=== PATIENT | female | born 1930 | race Native Hawaiian/Other Pacific Islander ===

== ENCOUNTER 2018-06-26 11:09 | Inpatient (IN) | payer OTHER ==
[~2018-06-26] VITALS: Ht 149.9 cm; Wt 62.7 kg
[~2018-06-26 11:09] MED LIST: BP; CHOLESTEROL; SITA25 PO
[2018-06-26] MEDS ORDERED: SODIUM CHLORIDE 0.9% 1,000 ML IV ONE (12:45)
[2018-06-26 14:33] LABS: BASOPHILS % (AUTO) 0.7 % (0.0-2.0); EOSINOPHILS % (AUTO) 4.5 % (1.0-6.0); HEMATOCRIT 28.7 % (36-46); HEMOGLOBIN 9.8 g/dL (12.0-16.0); LYMPHOCYTES # (AUTO) 1.2 K/uL (1.0-4.8); LYMPHOCYTES % (AUTO) 14.4 % (22.0-44.0); MEAN CORPUSCULAR HEMOGLOBIN 26.8 pg (26.0-34.0); MEAN CORPUSCULAR VOLUME 79 fL (80-100); MONOCYTES # (AUTO) 0.5 K/uL (0.1-1.0); MONOCYTES % (AUTO) 6.7 % (2.0-9.0); NEUTROPHILS # (AUTO) 5.9 K/uL (1.8-7.7); NEUTROPHILS % (AUTO) 73.7 % (40.0-70.0); PLATELET COUNT (AUTO) 375 K/uL (150-450); RED BLOOD CELL COUNT(AUTO) 3.64 MIL/uL (4.00-5.20); RED CELL DISTRIBUTION WIDTH 14.1 % (11.5-14.5)
[2018-06-26] MEDS ORDERED: ONDANSETRON HCL 4 MG/2 ML VIAL IVP PRN ×2 (14:45→15:45)
[2018-06-26] MEDS ORDERED: 0.9% SODIUM CHLORIDE 10 ML SYRINGE IVP PRN (14:45)
[2018-06-26] MEDS ORDERED: ACETAMINOPHEN 325 MG TABLET PO PRN ×2 (14:45→15:45)
[2018-06-26 15:17] LABS: ALBUMIN 2.9 g/dL (3.4-5.0); BILIRUBIN,TOTAL 0.2 mg/dL (0.1-1.0); CALCIUM, TOTAL 9.3 mg/dL (8.8-10.5); CREATININE 5.74 mg/dL (0.60-1.30); POTASSIUM 4.5 mmol/L (3.5-5.1); TOTAL PROTEIN, SERUM 7.2 g/dL (6.4-8.2)
[2018-06-26] MEDS ORDERED: HYDROCODONE/ACETAMINOPHEN 5-325 MG TABLET PO PRN (15:45)
[2018-06-26] MEDS ORDERED: MAGNESIUM HYDROXIDE SUSPENSION 30 ML UDCUP PO PRN (15:45)
[2018-06-26] MEDS ORDERED: ZOLPIDEM TARTRATE 5 MG TABLET PO PRN (15:45)
[2018-06-26] MEDS ORDERED: BISACODYL 10 MG RECTAL RECTAL SUPPOSITORY PR PRN (15:45)
[2018-06-26] MEDS ORDERED: DEXTROSE 50%-WATER 25 GM/50 ML SYRINGE IVP PRN (15:45)
[2018-06-26] MEDS ORDERED: MORPHINE SULFATE 2 MG/ML SYRINGE IVP PRN (15:45)
[2018-06-26 16:56] VITALS: BP 129/57
[2018-06-26] MEDS: HEPARIN SODIUM,PORCINE 5,000 UNITS/ML VIAL SQ SCH ×2 (17:43→23:14)
[2018-06-26] MEDS: INSULIN LISPRO 100 UNITS/ML SQ PRN ×2 (17:46→21:33)
[2018-06-26 19:41] VITALS: BP 111/51
[2018-06-26] MEDS: SODIUM CHLORIDE 0.9% 1,000 ML IV SCH (20:24)
[2018-06-26] MEDS: DOCUSATE SODIUM 100 MG CAPSULE PO SCH (20:24)
[2018-06-26 21:08] LABS: GLUCOMETER DEV NAME(LOC) 5S.2; GLUCOSE,POINT OF CARE 192 MG/DL (70-110)
[2018-06-26 23:22] LABS: GLUCOMETER DEV NAME(LOC) 5S.2; GLUCOSE,POINT OF CARE 234 MG/DL (70-110)
[2018-06-26 23:30] VITALS: BP 96/47
[2018-06-26 23:47] LABS: APPEARANCE,URINE CLOUDY (CLEAR); BILIRUBIN,URINE NEGATIVE (NEGATIVE); CREATININE,URINE RANDOM 22.7 mg/dL (30.0-125.0); GLUCOSE, URINE (UA) NEGATIVE (NEGATIVE); KETONES,URINE NEGATIVE (NEGATIVE); LEUKOCYTE ESTERASE ,URINE LARGE (NEGATIVE); NITRATE,URINE NEGATIVE (NEGATIVE); OCCULT BLOOD,URINE MODERATE (NEGATIVE); PH,URINE 5.5 (5.0-8.0); PROTEIN,URINE TRACE (NEGATIVE); UROBILINOGEN,URINE 0.2 mg/dL (<=1.0)
[2018-06-27 00:09] LABS: BACTERIA,URINE Many /HPF (None Seen); WBC,URINE 51-100 /HPF (0-5)
[2018-06-27 00:10] LABS: SQUAMOUS EPITHELIAL CELL,UR Few /LPF (None Seen)
[2018-06-27 04:25] VITALS: BP 118/52
[2018-06-27] MEDS: INSULIN LISPRO 100 UNITS/ML SQ PRN ×4 (05:54→20:58)
[2018-06-27 05:56] LABS: GLUCOMETER DEV NAME(LOC) 5S.2; GLUCOSE,POINT OF CARE 159 MG/DL (70-110)
[2018-06-27 06:31] LABS: BASOPHILS % (AUTO) 1.2 % (0.0-2.0); EOSINOPHILS % (AUTO) 7.2 % (1.0-6.0); HEMATOCRIT 26.1 % (36-46); HEMOGLOBIN 8.8 g/dL (12.0-16.0); LYMPHOCYTES % (AUTO) 17.1 % (22.0-44.0); MEAN CORPUSCULAR HEMOGLOBIN 26.6 pg (26.0-34.0); MEAN CORPUSCULAR HGB CONC 33.9 G/dL (31.0-37.0); MEAN CORPUSCULAR VOLUME 79 fL (80-100); MONOCYTES # (AUTO) 0.4 K/uL (0.1-1.0); MONOCYTES % (AUTO) 7.2 % (2.0-9.0); NEUTROPHILS # (AUTO) 4.1 K/uL (1.8-7.7); NEUTROPHILS % (AUTO) 67.3 % (40.0-70.0); PLATELET COUNT (AUTO) 356 K/uL (150-450); RED BLOOD CELL COUNT(AUTO) 3.32 MIL/uL (4.00-5.20); RED CELL DISTRIBUTION WIDTH 14.6 % (11.5-14.5)
[2018-06-27] MEDS: SODIUM CHLORIDE 0.9% 1,000 ML IV SCH ×2 (06:52→21:10)
[2018-06-27 07:03] LABS: ALBUMIN 2.4 g/dL (3.4-5.0); BILIRUBIN,TOTAL 0.2 mg/dL (0.1-1.0); CALCIUM, TOTAL 8.7 mg/dL (8.8-10.5); CREATININE 4.99 mg/dL (0.60-1.30); MAGNESIUM 1.5 mg/dL (1.80-2.40); PHOSPHORUS 4.1 mg/dL (2.5-4.9); POTASSIUM 4.1 mmol/L (3.5-5.1); TOTAL PROTEIN, SERUM 6.3 g/dL (6.4-8.2)
[2018-06-27 07:06] LABS: HEMOGLOBIN A1C 10.5 % (4.5-6.2)
[2018-06-27 07:16] LABS: % IRON SATURATION 26.1 % (22-44)
[2018-06-27 08:13] VITALS: BP 135/53
[2018-06-27] MEDS: PANTOPRAZOLE SODIUM 40 MG DR TABLET PO SCH (08:55)
[2018-06-27] MEDS: HEPARIN SODIUM,PORCINE 5,000 UNITS/ML VIAL SQ SCH ×2 (08:56→17:24)
[2018-06-27] MEDS: DOCUSATE SODIUM 100 MG CAPSULE PO SCH ×2 (08:56→20:26)
[2018-06-27] MEDS: CefTRIAXone 1 GM/DEXTROSE 50 ML IV SCH (09:27)
[2018-06-27] MEDS ORDERED: MAGNESIUM SULFATE 1 GM in DEXTROSE 5%-WATER 50 ML IV ONE (10:30)
[2018-06-27 11:06] VITALS: BP 133/59
[2018-06-27 14:19] LABS: GLUCOMETER DEV NAME(LOC) 5S.1; GLUCOSE,POINT OF CARE 249 MG/DL (70-110)
[2018-06-27 15:25] VITALS: BP 121/46
[2018-06-27 20:24] VITALS: BP 119/51
[2018-06-27 20:29] LABS: GLUCOMETER DEV NAME(LOC) 5S.1; GLUCOSE,POINT OF CARE 216 MG/DL (70-110)
[2018-06-27 21:34] LABS: GLUCOMETER DEV NAME(LOC) 5S.2; GLUCOSE,POINT OF CARE 167 MG/DL (70-110)
[2018-06-27 23:50] VITALS: BP 140/60
[2018-06-28] MEDS: HEPARIN SODIUM,PORCINE 5,000 UNITS/ML VIAL SQ SCH ×4 (00:02→23:54)
[2018-06-28 03:52] VITALS: BP 134/55
[2018-06-28 05:44] LABS: BASOPHILS % (AUTO) 1.3 % (0.0-2.0); HEMATOCRIT 25.4 % (36-46); HEMOGLOBIN 8.8 g/dL (12.0-16.0); LYMPHOCYTES # (AUTO) 1.3 K/uL (1.0-4.8); LYMPHOCYTES % (AUTO) 18.5 % (22.0-44.0); MEAN CORPUSCULAR HEMOGLOBIN 27.2 pg (26.0-34.0); MEAN CORPUSCULAR HGB CONC 34.7 G/dL (31.0-37.0); MEAN CORPUSCULAR VOLUME 79 fL (80-100); MONOCYTES # (AUTO) 0.6 K/uL (0.1-1.0); MONOCYTES % (AUTO) 8.6 % (2.0-9.0); NEUTROPHILS # (AUTO) 4.5 K/uL (1.8-7.7); NEUTROPHILS % (AUTO) 64.6 % (40.0-70.0); PLATELET COUNT (AUTO) 372 K/uL (150-450); RED BLOOD CELL COUNT(AUTO) 3.23 MIL/uL (4.00-5.20); RED CELL DISTRIBUTION WIDTH 14.7 % (11.5-14.5)
[2018-06-28 05:59] LABS: ALBUMIN 2.3 g/dL (3.4-5.0); BILIRUBIN,TOTAL 0.2 mg/dL (0.1-1.0); CALCIUM, TOTAL 8.8 mg/dL (8.8-10.5); CREATININE 4.42 mg/dL (0.60-1.30); MAGNESIUM 1.6 mg/dL (1.80-2.40); PHOSPHORUS 4.3 mg/dL (2.5-4.9); POTASSIUM 4.2 mmol/L (3.5-5.1); TOTAL PROTEIN, SERUM 6.2 g/dL (6.4-8.2)
[2018-06-28] MEDS: SODIUM CHLORIDE 0.9% 1,000 ML IV SCH ×2 (06:54→16:15)
[2018-06-28 07:28] VITALS: BP 139/58
[2018-06-28 07:59] LABS: GLUCOMETER DEV NAME(LOC) 5S.1; GLUCOSE,POINT OF CARE 134 MG/DL (70-110)
[2018-06-28] MEDS ORDERED: MAGNESIUM SULFATE 1 GM in DEXTROSE 5%-WATER 50 ML IV ONE (08:00)
[2018-06-28] MEDS: PANTOPRAZOLE SODIUM 40 MG DR TABLET PO SCH (08:36)
[2018-06-28] MEDS: EPOETIN ALFA 10,000 UNITS/ML VIAL SQ SCH (08:37)
[2018-06-28] MEDS: DOCUSATE SODIUM 100 MG CAPSULE PO SCH ×2 (08:37→20:37)
[2018-06-28] MEDS: CefTRIAXone 1 GM/DEXTROSE 50 ML IV SCH (10:32)
[2018-06-28 11:26] VITALS: BP 137/57
[2018-06-28] MEDS: INSULIN LISPRO 100 UNITS/ML SQ PRN ×2 (11:48→17:57)
[2018-06-28 16:02] VITALS: BP 143/68
[2018-06-28 16:39] LABS: GLUCOMETER DEV NAME(LOC) 5S.1; GLUCOSE,POINT OF CARE 238 MG/DL (70-110)
[2018-06-28 20:18] VITALS: BP 145/62
[2018-06-28 20:18] LABS: GLUCOMETER DEV NAME(LOC) 5S.2; GLUCOSE,POINT OF CARE 167 MG/DL (70-110)
[2018-06-28] MEDS: INSULIN GLARGINE,HUM.REC.ANLOG 100 UNITS/ML SQ SCH (20:38)
[2018-06-29] VITALS (8 sets, daily range): BP systolic 145–173; BP diastolic 55–79
[2018-06-29 02:09] LABS: GLUCOMETER DEV NAME(LOC) 5S.2; GLUCOSE,POINT OF CARE 224 MG/DL (70-110)
[2018-06-29] MEDS: SODIUM CHLORIDE 0.9% 1,000 ML IV SCH ×2 (03:26→12:42)
[2018-06-29 06:05] LABS: BASOPHILS % (AUTO) 1.9 % (0.0-2.0); EOSINOPHILS % (AUTO) 8.3 % (1.0-6.0); HEMATOCRIT 27.7 % (36-46); HEMOGLOBIN 9.6 g/dL (12.0-16.0); LYMPHOCYTES # (AUTO) 1.3 K/uL (1.0-4.8); LYMPHOCYTES % (AUTO) 17.7 % (22.0-44.0); MEAN CORPUSCULAR HEMOGLOBIN 27.4 pg (26.0-34.0); MEAN CORPUSCULAR HGB CONC 34.7 G/dL (31.0-37.0); MEAN CORPUSCULAR VOLUME 79 fL (80-100); MONOCYTES # (AUTO) 0.5 K/uL (0.1-1.0); MONOCYTES % (AUTO) 7.5 % (2.0-9.0); NEUTROPHILS # (AUTO) 4.6 K/uL (1.8-7.7); NEUTROPHILS % (AUTO) 64.6 % (40.0-70.0); PLATELET COUNT (AUTO) 399 K/uL (150-450); RED CELL DISTRIBUTION WIDTH 14.7 % (11.5-14.5)
[2018-06-29 06:23] LABS: ALBUMIN 2.5 g/dL (3.4-5.0); BILIRUBIN,TOTAL 0.2 mg/dL (0.1-1.0); CALCIUM, TOTAL 9.2 mg/dL (8.8-10.5); CREATININE 3.58 mg/dL (0.60-1.30); MAGNESIUM 1.6 mg/dL (1.80-2.40); PHOSPHORUS 3.3 mg/dL (2.5-4.9); POTASSIUM 3.9 mmol/L (3.5-5.1); TOTAL PROTEIN, SERUM 6.8 g/dL (6.4-8.2)
[2018-06-29 06:35] LABS: GLUCOMETER DEV NAME(LOC) 5S.1; GLUCOSE,POINT OF CARE 182 MG/DL (70-110)
[2018-06-29] MEDS: HEPARIN SODIUM,PORCINE 5,000 UNITS/ML VIAL SQ SCH ×2 (08:00→15:00)
[2018-06-29] MEDS: DOCUSATE SODIUM 100 MG CAPSULE PO SCH ×2 (08:02→19:58)
[2018-06-29] MEDS ORDERED: CefTRIAXone SODIUM 1 GM/VIAL ONE (09:31)
[2018-06-29] MEDS ORDERED: SODIUM CHLORIDE 0.9% 100 ML ONE (09:32)
[2018-06-29] MEDS ORDERED: MEPERIDINE-PF 25 MG/ML VIAL IVP PRN (09:45)
[2018-06-29] MEDS ORDERED: FentaNYL CITRATE-PF 100 MCG/2 ML VIAL IVP PRN (09:45)
[2018-06-29] MEDS ORDERED: HYDROmorphone 2 MG/ML SYRINGE IVP PRN (09:45)
[2018-06-29] MEDS ORDERED: IOHEXOL 240 MG/ML 20 ML VIAL ONE (10:32)
[2018-06-29] MEDS: CefTRIAXone 1 GM/DEXTROSE 50 ML IV SCH (11:02)
[2018-06-29] MEDS: PANTOPRAZOLE SODIUM 40 MG DR TABLET PO SCH (11:02)
[2018-06-29] MEDS: INSULIN LISPRO 100 UNITS/ML SQ PRN ×3 (12:03→20:45)
[2018-06-29 12:44] LABS: GLUCOMETER DEV NAME(LOC) 5S.2; GLUCOSE,POINT OF CARE 172 MG/DL (70-110)
[2018-06-29] MEDS: CARVEDILOL 6.25 MG TABLET PO SCH ×2 (14:26→20:45)
[2018-06-29] MEDS ORDERED: ASPI-1182 PO (15:28)
[2018-06-29] MEDS ORDERED: FEBU40T PO (15:28)
[2018-06-29] MEDS ORDERED: FERR-89 PO (15:28)
[2018-06-29] MEDS ORDERED: PANT40TA25 PO (15:28)
[2018-06-29] MEDS ORDERED: CILO100T PO (15:28)
[2018-06-29] MEDS ORDERED: PYRI50 PO (15:28)
[2018-06-29] MEDS ORDERED: THIA100T67 PO (15:28)
[2018-06-29] MEDS ORDERED: AMLO2.5T4 PO (15:28)
[2018-06-29] MEDS ORDERED: FOLI1 PO (15:28)
[2018-06-29] MEDS ORDERED: CARV12 PO (15:28)
[2018-06-29] MEDS ORDERED: ROSU20 PO (15:28)
[2018-06-29] MEDS ORDERED: LOSA50TA64 PO (15:28)
[2018-06-29] MEDS ORDERED: DOCU250C91 PO (15:28)
[2018-06-29 18:04] LABS: GLUCOMETER DEV NAME(LOC) 5S.1; GLUCOSE,POINT OF CARE 112 MG/DL (70-110)
[2018-06-29] MEDS: OXYGEN THERAPY IH SCH (20:00)
[2018-06-29] MEDS: INSULIN GLARGINE,HUM.REC.ANLOG 100 UNITS/ML SQ SCH (20:47)
[2018-06-30] MEDS: SODIUM CHLORIDE 0.9% 1,000 ML IV SCH ×3 (00:09→17:44)
[2018-06-30 01:08] LABS: GLUCOMETER DEV NAME(LOC) 5S.1; GLUCOSE,POINT OF CARE 178 MG/DL (70-110)
[2018-06-30 04:31] VITALS: BP 176/82
[2018-06-30] MEDS ORDERED: SUCCINYLCHOLINE CHLORIDE 20 MG/ML 10 ML VIAL IVP ONE (06:03)
[2018-06-30] MEDS ORDERED: FentaNYL CITRATE-PF 100 MCG/2 ML VIAL IVP ONE (06:03)
[2018-06-30] MEDS ORDERED: PROPOFOL 1% 20 ML VIAL IVP ONE (06:03)
[2018-06-30] MEDS ORDERED: 0.9% SODIUM CHLORIDE 10 ML VIAL IVP ONE (06:03)
[2018-06-30] MEDS ORDERED: LIDOCAINE/PF 2% 5 ML VIAL IM ONE (06:03)
[2018-06-30] MEDS ORDERED: ONDANSETRON HCL 4 MG/2 ML VIAL IVP ONE (06:03)
[2018-06-30 06:29] LABS: GLUCOMETER DEV NAME(LOC) 5N.1; GLUCOSE,POINT OF CARE 94 MG/DL (70-110)
[2018-06-30] MEDS: OXYGEN THERAPY IH SCH ×2 (08:00→19:53)
[2018-06-30] MEDS: DOCUSATE SODIUM 100 MG CAPSULE PO SCH ×2 (08:25→20:02)
[2018-06-30] MEDS: PANTOPRAZOLE SODIUM 40 MG DR TABLET PO SCH (08:25)
[2018-06-30] MEDS: CARVEDILOL 6.25 MG TABLET PO SCH (08:25)
[2018-06-30 08:33] VITALS: BP 183/71
[2018-06-30 10:07] LABS: CALCIUM, TOTAL 8.7 mg/dL (8.8-10.5); CREATININE 2.59 mg/dL (0.60-1.30); POTASSIUM 3.4 mmol/L (3.5-5.1)
[2018-06-30] MEDS ORDERED: POTASSIUM CHLORIDE 20 MEQ ER TABLET PO ONE (10:30)
[2018-06-30] MEDS: CefTRIAXone 1 GM/DEXTROSE 50 ML IV SCH (10:45)
[2018-06-30] MEDS: INSULIN LISPRO 100 UNITS/ML SQ PRN ×2 (11:22→20:20)
[2018-06-30 11:45] VITALS: BP 183/77
[2018-06-30] MEDS ORDERED: AmLODIPine BESYLATE 2.5 MG TABLET PO SCH (14:00)
[2018-06-30 14:44] LABS: GLUCOMETER DEV NAME(LOC) 5S.1; GLUCOSE,POINT OF CARE 173 MG/DL (70-110)
[2018-06-30] MEDS: HydrALAZINE HCL 25 MG TABLET PO SCH (15:21)
[2018-06-30] MEDS ORDERED: HydrALAZINE HCL 25 MG TABLET PO SCH (16:00)
[2018-06-30 16:21] VITALS: BP 181/81
[2018-06-30 19:31] VITALS: BP 157/75
[2018-06-30] MEDS: CARVEDILOL 12.5 MG TABLET PO SCH (20:19)
[2018-06-30] MEDS: INSULIN GLARGINE,HUM.REC.ANLOG 100 UNITS/ML SQ SCH (20:19)
[2018-06-30 20:28] LABS: GLUCOMETER DEV NAME(LOC) 5N.1; GLUCOSE,POINT OF CARE 166 MG/DL (70-110)
[2018-06-30 23:54] VITALS: BP 151/75
[2018-07-01] MEDS: HydrALAZINE HCL 25 MG TABLET PO SCH ×3 (00:14→15:11)
[2018-07-01 02:13] LABS: GLUCOMETER DEV NAME(LOC) 5S.1; GLUCOSE,POINT OF CARE 137 MG/DL (70-110)
[2018-07-01] MEDS: SODIUM CHLORIDE 0.9% 1,000 ML IV SCH ×2 (04:10→15:11)
[2018-07-01 04:36] VITALS: BP 154/84
[2018-07-01 07:02] LABS: BASOPHILS % (AUTO) 1.1 % (0.0-2.0); EOSINOPHILS % (AUTO) 0.9 % (1.0-6.0); HEMATOCRIT 32.4 % (36-46); HEMOGLOBIN 11.1 g/dL (12.0-16.0); LYMPHOCYTES # (AUTO) 1.1 K/uL (1.0-4.8); LYMPHOCYTES % (AUTO) 12.2 % (22.0-44.0); MEAN CORPUSCULAR HEMOGLOBIN 27.4 pg (26.0-34.0); MEAN CORPUSCULAR HGB CONC 34.1 G/dL (31.0-37.0); MEAN CORPUSCULAR VOLUME 80 fL (80-100); MONOCYTES # (AUTO) 0.3 K/uL (0.1-1.0); NEUTROPHILS # (AUTO) 7.6 K/uL (1.8-7.7); NEUTROPHILS % (AUTO) 82.8 % (40.0-70.0); PLATELET COUNT (AUTO) 473 K/uL (150-450); RED BLOOD CELL COUNT(AUTO) 4.03 MIL/uL (4.00-5.20); RED CELL DISTRIBUTION WIDTH 14.8 % (11.5-14.5)
[2018-07-01 07:11] LABS: CREATININE 2.18 mg/dL (0.60-1.30); POTASSIUM 3.3 mmol/L (3.5-5.1)
[2018-07-01 07:24] LABS: GLUCOMETER DEV NAME(LOC) 5N.1; GLUCOSE,POINT OF CARE 89 MG/DL (70-110)
[2018-07-01 07:53] VITALS: BP 193/94
[2018-07-01] MEDS: OXYGEN THERAPY IH SCH ×2 (08:00→20:00)
[2018-07-01] MEDS ORDERED: POTASSIUM CHLORIDE 20 MEQ ER TABLET PO ONE (08:15)
[2018-07-01] MEDS: CARVEDILOL 12.5 MG TABLET PO SCH ×2 (08:22→23:41)
[2018-07-01] MEDS: PANTOPRAZOLE SODIUM 40 MG DR TABLET PO SCH (08:22)
[2018-07-01] MEDS: DOCUSATE SODIUM 100 MG CAPSULE PO SCH ×2 (08:23→23:40)
[2018-07-01] MEDS: EPOETIN ALFA 10,000 UNITS/ML VIAL SQ SCH (09:49)
[2018-07-01] MEDS: AmLODIPine BESYLATE 5 MG TABLET PO SCH (09:50)
[2018-07-01] MEDS: CefTRIAXone 1 GM/DEXTROSE 50 ML IV SCH (09:51)
[2018-07-01] MEDS: INSULIN LISPRO 100 UNITS/ML SQ PRN ×2 (11:21→18:04)
[2018-07-01 11:40] VITALS: BP 158/71
[2018-07-01 16:02] VITALS: BP 153/74
[2018-07-01 19:49] VITALS: BP 130/53
[2018-07-01] MEDS: INSULIN GLARGINE,HUM.REC.ANLOG 100 UNITS/ML SQ SCH (21:00)
[2018-07-01 23:27] VITALS: BP 156/67
[2018-07-02 00:13] LABS: GLUCOMETER DEV NAME(LOC) 5S.1; GLUCOSE,POINT OF CARE 204 MG/DL (70-110)
[2018-07-02 00:14] LABS: GLUCOMETER DEV NAME(LOC) 5S.1; GLUCOSE,POINT OF CARE 118 MG/DL (70-110)
[2018-07-02 00:14] LABS: GLUCOMETER DEV NAME(LOC) 5S.1; GLUCOSE,POINT OF CARE 169 MG/DL (70-110)
[2018-07-02] MEDS: SODIUM CHLORIDE 0.9% 1,000 ML IV SCH (04:09)
[2018-07-02 05:01] VITALS: BP 175/67
[2018-07-02 06:02] LABS: EOSINOPHILS % (AUTO) 5.6 % (1.0-6.0); HEMOGLOBIN 9.8 g/dL (12.0-16.0); LYMPHOCYTES # (AUTO) 1.4 K/uL (1.0-4.8); LYMPHOCYTES % (AUTO) 20.3 % (22.0-44.0); MEAN CORPUSCULAR HGB CONC 33.8 G/dL (31.0-37.0); MEAN CORPUSCULAR VOLUME 80 fL (80-100); MONOCYTES # (AUTO) 0.5 K/uL (0.1-1.0); MONOCYTES % (AUTO) 7.9 % (2.0-9.0); NEUTROPHILS # (AUTO) 4.3 K/uL (1.8-7.7); NEUTROPHILS % (AUTO) 64.2 % (40.0-70.0); PLATELET COUNT (AUTO) 410 K/uL (150-450); RED BLOOD CELL COUNT(AUTO) 3.62 MIL/uL (4.00-5.20); RED CELL DISTRIBUTION WIDTH 14.7 % (11.5-14.5)
[2018-07-02 06:44] LABS: ALBUMIN 2.4 g/dL (3.4-5.0); BILIRUBIN,TOTAL 0.2 mg/dL (0.1-1.0); CALCIUM, TOTAL 8.3 mg/dL (8.8-10.5); CREATININE 1.96 mg/dL (0.60-1.30); TOTAL PROTEIN, SERUM 6.7 g/dL (6.4-8.2)
[2018-07-02 07:12] VITALS: BP 161/69
[2018-07-02] MEDS ORDERED: POTASSIUM CHLORIDE 20 MEQ ER TABLET PO PRN (07:45)
[2018-07-02] MEDS ORDERED: POTASSIUM CHL 10 MEQ/WATER 50 ML IV PRN (07:45)
[2018-07-02] MEDS: OXYGEN THERAPY IH SCH ×2 (08:00→20:00)
[2018-07-02] MEDS ORDERED: MAGNESIUM SULFATE 3 GM in DEXTROSE 5%-WATER 100 ML IV ONE (08:15)
[2018-07-02] MEDS: DOCUSATE SODIUM 100 MG CAPSULE PO SCH ×2 (08:16→20:18)
[2018-07-02] MEDS: HydrALAZINE HCL 25 MG TABLET PO SCH ×4 (08:16→23:14)
[2018-07-02] MEDS: PANTOPRAZOLE SODIUM 40 MG DR TABLET PO SCH (08:16)
[2018-07-02] MEDS: CARVEDILOL 12.5 MG TABLET PO SCH ×2 (08:16→20:18)
[2018-07-02] MEDS: AmLODIPine BESYLATE 5 MG TABLET PO SCH (08:16)
[2018-07-02 08:19] LABS: GLUCOMETER DEV NAME(LOC) 5N.1; GLUCOSE,POINT OF CARE 119 MG/DL (70-110)
[2018-07-02] MEDS: CefTRIAXone 1 GM/DEXTROSE 50 ML IV SCH (09:24)
[2018-07-02] MEDS: INSULIN LISPRO 100 UNITS/ML SQ PRN (11:14)
[2018-07-02 11:23] VITALS: BP 151/71
[2018-07-02 12:14] LABS: GLUCOMETER DEV NAME(LOC) 5N.1; GLUCOSE,POINT OF CARE 309 MG/DL (70-110)
[2018-07-02] MEDS: POTASSIUM CHL 10 MEQ/WATER 50 ML IV SCH ×2 (14:16→15:30)
[2018-07-02 18:32] LABS: MAGNESIUM 2.2 mg/dL (1.80-2.40); POTASSIUM 4.3 mmol/L (3.5-5.1)
[2018-07-02 19:30] VITALS: BP 150/68
[2018-07-02] MEDS ORDERED: AMLO5TAB66 PO (19:52)
[2018-07-02] MEDS ORDERED: HYDR25TA84 PO (19:55)
[2018-07-02] MEDS ORDERED: CEPH500 PO (19:58)
[2018-07-02] MEDS: INSULIN GLARGINE,HUM.REC.ANLOG 100 UNITS/ML SQ SCH (20:39)
[2018-07-02 23:11] VITALS: BP 148/64
[2018-07-03 02:59] LABS: GLUCOMETER DEV NAME(LOC) 5N.1; GLUCOSE,POINT OF CARE 201 MG/DL (70-110)
[2018-07-03 02:59] LABS: GLUCOMETER DEV NAME(LOC) 5N.1; GLUCOSE,POINT OF CARE 142 MG/DL (70-110)
== END 2018-07-02 23:30 | DRG 683 ==
LOC: EMS 11:10 → 5S 15:35
PROVIDERS: ADMIT Hospitalist; ATTEND Hospitalist
PROC: 0TB08ZX Excision of Right Kidney, Via Natural or Artificial Opening Endoscopic, Diagnostic (ICD-10-PCS; 2018-06-29)
PROC: BT1DYZZ Fluoroscopy of Right Kidney, Ureter and Bladder using Other Contrast (ICD-10-PCS; principal; 2018-06-29 07:30)
DX: I12.9 Hypertensive chronic kidney disease with stage 1 through stage 4 chronic kidney disease, or unspecified chronic kidney disease (principal); N17.9 Acute kidney failure, unspecified; E87.1 Hypo-osmolality and hyponatremia; M62.82 Rhabdomyolysis; N13.6 Pyonephrosis; D64.9 Anemia, unspecified; N20.0 Calculus of kidney; Z90.5 Acquired absence of kidney; N18.9 Chronic kidney disease, unspecified; E11.22 Type 2 diabetes mellitus with diabetic chronic kidney disease; E11.51 Type 2 diabetes mellitus with diabetic peripheral angiopathy without gangrene; E11.65 Type 2 diabetes mellitus with hyperglycemia; E78.00 Pure hypercholesterolemia, unspecified; E78.5 Hyperlipidemia, unspecified; E83.42 Hypomagnesemia; E87.6 Hypokalemia; E87.70 Fluid overload, unspecified; I08.0 Rheumatic disorders of both mitral and aortic valves; M10.9 Gout, unspecified; Q63.0 Accessory kidney; Z87.442 Personal history of urinary calculi
CPT/HCPCS: 74176; 76770; 82570; 83036; 83540; 83550; 83735; 84100; 84132; 84300; 84540; 87086; 93005; 93306; 97162; 99291; G0378; J0330; J0696; J0885; J1644; J1815; J2405; J2704; J3010; J3475; J3480; J3490; J7030; J7050; J7060; Q9966

== ENCOUNTER → 2018-09-23 | Outpatient (CLI) | payer OTHER ==
[~2018-09-23] MED LIST changes: +AMLO2.5T4 PO; +AMLO5TAB66 PO; +ASPI-1182 PO; -BP; +CARV12 PO; +CEPH500 PO; -CHOLESTEROL; +CILO100T PO; +DOCU250C91 PO; +FEBU40T PO; +FERR-89 PO; +FOLI1 PO; +HYDR25TA84 PO; +LOSA50TA64 PO; +PANT40TA25 PO; +PYRI50 PO; +ROSU20TA23 PO; +THIA100T67 PO
== END | disposition home or self-care (01) ==
LOC: RADMN 16:21
PROVIDERS: ATTEND Neuromusculoskeletal Medicine, Sports Medicine
DX: S22.42XD Multiple fractures of ribs, left side, subsequent encounter for fracture with routine healing (principal); M19.012 Primary osteoarthritis, left shoulder; M85.812 Other specified disorders of bone density and structure, left shoulder; I70.0 Atherosclerosis of aorta; I11.9 Hypertensive heart disease without heart failure; X58.XXXD Exposure to other specified factors, subsequent encounter
CPT/HCPCS: 71101